=== PATIENT | female | born 1960 | race Caucasian/White ===

== ENCOUNTER → 2023-06-06 13:05 | Outpatient (REF) | payer OTHER, SELFPAY | LOC: RCS 13:05 | PROVIDERS: ATTENDING PHYSICIAN Internal Medicine Cardiovascular Disease; FAMILY PHYSICIAN Internal Medicine Geriatric Medicine | DX: E78.2 Mixed hyperlipidemia (principal); I25.10 Atherosclerotic heart disease of native coronary artery without angina pectoris | CPT/HCPCS: 93306 ==